=== PATIENT | male | born 1955 | race Caucasian/White ===

== ENCOUNTER → 2022-07-13 11:14 | Outpatient (BNVA) | payer MEDICARE, SELFPAY | PROVIDERS: PCP Internal Medicine; Visit Provider Physician Assistant | DX: M41.20 Other idiopathic scoliosis, site unspecified (principal) | CPT/HCPCS: 99212 ==

== ENCOUNTER → 2022-08-24 10:00 | Outpatient (BNVA) | payer MEDICARE, SELFPAY | PROVIDERS: PCP Internal Medicine; Visit Provider Physician Assistant | DX: M41.20 Other idiopathic scoliosis, site unspecified (principal) | CPT/HCPCS: 99212 ==

== ENCOUNTER 2022-11-30 13:54 | Outpatient (AMB) | payer MEDICARE, SELFPAY ==
--- NOTE | 2022-11-30 14:25 | A.SPINEOV_ITS ---
Intake Intake Visit Reasons: 3 month follow up with x-rays Intake Note: Mr. Begum is here today for his 3mo f/u w/x-rays. Discovery Manager Required: No Allergies No Known Allergies Allergy (Verified 08/24/22 10:15) Assessment & Plan Assessment & Plan (1) Scoliosis (and kyphoscoliosis), idiopathic: Code(s): M41.20 - Other idiopathic scoliosis, site unspecified Plan Mr Shy is here today 7 months out from his L1-5 trans Kambin oblique lateral lumbar interbody fusion. He has had almost complete relief of his preoperative back pain, however he still having painful dysesthesias in his anterior thigh is as well as feelings of weakness proximally when he is going up and down stairs or walking. He is unsteady on his feet and will use a cane and does have some fatigue in his legs. On exam he is still demonstrating some mild iliopsoas weakness but distally from the quadriceps down he is 5/5. No hyperreflexia noted in the lower extremities. He seems to be ever so slowly making improvements but does not seem to have full function back yet. I am going to recommend lumbar MRI for him to check the status of the spinal canal. He has done 6 months of PT and has tried all the usual Tylenol, Lyrica and oxycodone to deal with the dysesthesias and discomfort. I will call him with the results of the MRI. His x-rays today looked excellent. Total amount of time spent in this visit was 20 minutes in discussion of symptoms, lumbar x-ray imaging results and subsequent plan of care Kiko Orta MD,PhD [facility] Orders: Orders XR lumbar spine 4V min Today M41.20 - Other idiopathic scoliosis, site unspecified Coding Level of Care Code New Pt Level 4 (68652) Diagnoses Scoliosis (and kyphoscoliosis), idiopathic M41.20
== END 2022-11-30 15:11 | disposition home or self-care (01) ==
PROVIDERS: PCP Internal Medicine; Visit Provider Physician Assistant
DX: M41.20 Other idiopathic scoliosis, site unspecified (principal)
CPT/HCPCS: 99214

== ENCOUNTER 2022-11-30 13:54 | Outpatient (REF) | payer MEDICARE, SELFPAY ==
--- NOTE | ~2022-11-30 | XR_ITS ---
EXAMINATION: XR LUMBOSACRAL SPINE CLINICAL INFORMATION: Reason for Exam M41.20 - Other idiopathic scoliosis, site unspecified COMPARISON: None TECHNIQUE: 4 views of the lumbar spine FINDINGS: 5 nonrib-bearing lumbar-type vertebral bodies. Status post L1-L5 discectomy and posterior spinal fusion with interbody disc spacers. No hardware fracture or complication. No osseous fusion across the fused vertebral bodies. Schmorl's node in the superior endplate of L1. Vertebral body heights are otherwise maintained. Dextroconvex curvature of the lumbar spine. No instability on flexion extension views. Mild degenerative disc disease at T12-L1 and L1-L2. Atherosclerotic calcifications of the abdominal aorta and splenic artery. XR/XR lumbar spine 4V min IMPRESSION: 1. Status post L1-L5 discectomy and posterior spinal fusion with interbody disc spacers. No hardware fracture or complication. No instability on flexion extension views. 2. Dextroconvex curvature of the lumbar spine. 3. Mild degenerative disc disease at T12-L1 and L1-L2.
== END 2022-11-30 13:55 | disposition home or self-care (01) ==
LOC: HO.HOSX 13:54
PROVIDERS: PCP Internal Medicine; Visit Provider Physician Assistant
DX: M41.20 Other idiopathic scoliosis, site unspecified (principal)
CPT/HCPCS: 72110; 99212

== ENCOUNTER 2022-12-29 11:00 | Outpatient (REF) | payer MEDICARE, SELFPAY | END 2022-12-29 11:01 | disposition home or self-care (01) | LOC: HO.MRI 11:00 | PROVIDERS: PCP Internal Medicine; Visit Provider Physician Assistant | DX: M41.20 Other idiopathic scoliosis, site unspecified (principal) | CPT/HCPCS: 72148 ==

== ENCOUNTER 2024-01-03 09:41 | Outpatient (AMB) | payer MEDICARE, SELFPAY ==
--- NOTE | 2024-01-03 09:42 | A.SPINEOV_ITS ---
Intake Visit Reasons: eval possible hardware removal Intake Note: Mr. Begum is here today c/o Evaluate for possible hardware removal. Sheet Metal Fabricator Required: No Allergies No Known Allergies Allergy (Verified 01/03/24 10:17) Assessment & Plan Assessment & Plan (1) Painful orthopaedic hardware: Code(s): T84.84XA - Pain due to internal orthopedic prosthetic devices, implants and grafts, initial encounter Category: Medical Plan Dear colleague, On 01/03/2024 I saw Vince begum. He is a 68-year-old male that underwent a lumbar minimally invasive fusion L2-L5 to correct a degenerative scoliosis more than 18 months ago. The preoperative symptoms completely disappeared. However, from day 1 he was complaining of a bilateral pain below the paramedian incision of the L5 screws. Initially, we thought that this would subside over time but unfortunately it has not. He had a local block done at [facility] which completely relieved the symptoms. Therefore it is reasonable to assume that the hardware is giving him pain. On exam: There is severe pain on palpation over that area ready bilateral L5 screws are and no pain over the other paramedian incisions. SI joint provocative tests are negative. Straight leg raise is negative. No motor or sensory deficits. In summary, this patient is most likely suffering from painful hardware and therefore I propose to remove the posterior instrumentation L1-L5. He will stop anti-inflammatory drugs and he is scheduled for 02/06/2024. He will get preoperative clearance from his primary care physician. I spent 20 minutes in his consult for history physical exam and discussing plan of care. Maged Orta MD, PhD [facility] Trained Neurosurgeon Director, [facility] Coding Level of Care Code Est Pt Level 3 (25934) Diagnoses Painful orthopaedic hardware T84.84XA
== END 2024-01-03 11:40 | disposition home or self-care (01) ==
PROVIDERS: PCP Internal Medicine; Visit Provider Neurological Surgery
DX: T84.84XA Pain due to internal orthopedic prosthetic devices, implants and grafts, initial encounter (principal)
CPT/HCPCS: 99213

== ENCOUNTER → 2024-01-03 09:41 | Outpatient (BNVA) | payer MEDICARE, SELFPAY | PROVIDERS: PCP Internal Medicine; Visit Provider Neurological Surgery | DX: T84.84XA Pain due to internal orthopedic prosthetic devices, implants and grafts, initial encounter (principal); X58.XXXA Exposure to other specified factors, initial encounter; Y93.9 Activity, unspecified; Y92.9 Unspecified place or not applicable; Y99.9 Unspecified external cause status | CPT/HCPCS: 99212 ==

== ENCOUNTER → 2024-01-17 12:52 | Outpatient (BNV) | payer MEDICARE, SELFPAY | PROVIDERS: PCP Internal Medicine; Visit Provider Internal Medicine | DX: I44.0 Atrioventricular block, first degree (principal); I49.1 Atrial premature depolarization; R94.31 Abnormal electrocardiogram [ECG] [EKG] | CPT/HCPCS: 93010 ==

== ENCOUNTER 2024-02-06 06:54 | Day surgery (SDC) | payer MEDICARE, SELFPAY ==
[2024-01-17 12:16] VITALS: BMI 24.5
[2024-01-17 12:23] VITALS: BP 113/69; PULSE 62; RESP 20; O2SAT 98
--- NOTE | 2024-01-17 12:52 | ECG_ITS ---
Test Reason : PREOP, COPD Blood Pressure : / mmHG Vent. Rate : 065 BPM Atrial Rate : 065 BPM P-R Int : 220 ms QRS Dur : 076 ms QT Int : 394 ms P-R-T Axes : 078 008 031 degrees QTc Int : 409 ms Sinus rhythm with 1st degree A-V block with Premature atrial complexes Low voltage QRS Borderline ECG No previous ECGs available Referred By: Marisa Shafer Electronically Signed By:MALVIN HOWARD
[2024-01-17 14:10] LABS: Hematocrit 38.4 % (42.0-52.0); Hemoglobin 13.5 g/dl (14.0-18.0); Mean Corpuscular HGB Conc 35.2 g/dl (31.0-36.0); Mean Corpuscular Hemoglobin 34.7 pg (27.0-33.0); Mean Corpuscular Volume 98.7 fL (80.0-98.0); Mean Platelet Volume 9.4 fL (9.4-12.4); Platelet Count 315 X10*3/uL (160-400); Red Blood Count 3.89 X10*6/uL (4.60-5.80); Red Cell Distribution Width 11.9 % (11.0-16.0); White Blood Count 6.1 X10*3/uL (4.8-10.8)
[2024-01-17 15:04] LABS: Anion Gap 14 (12-20); Blood Urea Nitrogen 7 mg/dL (9-16); Calcium 9.6 mg/dL (8.4-10.2); Carbon Dioxide 26 mmol/L (22-29); Chloride 100 mmol/L (96-108); Creatinine Clr Calc Pharmacy 97.8; Estimated Glomerular Filt Rate > 60; Glucose Random 77 mg/dL (60-115); Potassium 4.5 mmol/L (3.3-5.1); Sodium 135 mmol/L (135-145)
--- NOTE | 2024-02-05 10:17 | P.CONAN_ITS ---
Documented by User: Lyric Flores NP 02/05/24 10:22 HPI - Anesthesia Eval Consult details Narrative: 68yo M for L1-L5 Posterior Instrumentation Spinal hardware Removal (S/P TKLIF) PAT with Dr Shafer 01/17/24 Medically optimized per PCP Follows [facility] cardiac surgery for incidental finding of 4.2cm ascending aorta aneurysm. Continue to monitor BP / q6 month imaging [facility] Active Problems Active Problems: All Active Problems (Updated 01/17/24 @ 12:09 by Brittney Doran RN) Painful orthopaedic hardware (Acute) Scoliosis (and kyphoscoliosis), idiopathic (Acute) Past Medical History Medical History Peptic ulcer Bronchitis Monoclonal gammopathy of unknown significance BPH (benign prostatic hyperplasia) Ascending aortic aneurysm Spinal stenosis GERD (gastroesophageal reflux disease) HTN (hypertension) COPD (chronic obstructive pulmonary disease) Low back pain Ankylosis of lumbar spine Scoliosis Surgical History Surgical History History of esophagogastroduodenoscopy (EGD) H/O colonoscopy Hx of neck surgery History of lumbar fusion Hx of tonsillectomy Social History Social History Are you a primary post acute care registered nurse to a significant other at home: No Do you presently have visiting nurse or other home services: No Patient Tobacco Use Status: Current everyday Tobacco user Tobacco use type: Cigarette Cigarettes Per Day: 3 Years Smoked: 52 Use of substances other than those prescribed or required for medical reasons: No Have you been hit, kicked, punched, or otherwise hurt by someone within the past year? If so, by whom?: No Spiritual Healthcare Practices: none Jewish Healthcare Practices: Congregational Cultural Healthcare Practices: none Are you DNR?: No Advance Directives Information Provided: Yes (as above noted) Advance Directives on File: No Recently lost weight without trying: No Eating poorly because of decreased appetite: No Nutrition Risks: No Nutritional Risk Poor oral hygiene: No (two missing teeth-lower) Meds Allergies Allergy/AdvReac Type Severity Reaction Status Date / Time Penicillins Allergy Unknown childhood Verified 02/06/24 07:09 allergy-reaction unknown-possible hives Home Medications ?Medication ?Instructions ?Recorded ?Confirmed ?Last Taken ?Type atorvastatin 40 mg tablet 40 mg PO BEDTIME 01/16/24 01/17/24 Unknown History celecoxib 200 mg capsule 200 mg PO QAM 01/16/24 01/17/24 Unknown History duloxetine 60 mg capsule,delayed 60 mg PO QAM 01/16/24 01/17/24 Unknown History release lisinopril 10 mg tablet 10 mg PO BEDTIME 01/16/24 01/17/24 Unknown History pregabalin 150 mg capsule 150 mg PO BID 01/16/24 01/17/24 02/06/24 History propranolol 40 mg tablet 40 mg PO BID 01/16/24 01/17/24 02/06/24 History tadalafil 5 mg tablet 5 mg PO QAM 01/16/24 01/17/24 Unknown History tamsulosin 0.4 mg capsule 0.4 mg PO BEDTIME 01/16/24 01/17/24 Unknown History varenicline 1 mg tablet 1 mg PO BID 01/16/24 01/17/24 02/06/24 History vibegron 75 mg tablet (Gemtesa) 75 mg PO BEDTIME 01/16/24 01/17/24 Unknown History albuterol sulfate 90 mcg/actuation 2 puff inhalation Q4H PRN wheezing 01/17/24 01/17/24 02/06/24 History aerosol inhaler Exam Height,Weight and Vital Signs: Height 5 ft 11 in Weight 79.832 kg Last Vital Signs Pulse 62 01/17/24 12:23 Resp 20 01/17/24 12:23 BP 113/69 01/17/24 12:23 Pulse Ox 98 01/17/24 12:23 O2 Del Method Room Air 01/17/24 12:23 Pertinent Lab Results Pertinent Lab Results: Laboratory Tests 01/17/24 13:22 WBC 6.1 RBC 3.89 L Hgb 13.5 L Hct 38.4 L MCV 98.7 H MCH 34.7 H MCHC 35.2 RDW 11.9 Plt Count 315 MPV 9.4 Absolute Nucleated RBC 0.000 Nucleated RBC % (auto) 0.0 Sodium 135 Potassium 4.5 Chloride 100 Carbon Dioxide 26 Anion Gap 14 BUN 7 L Creatinine 0.78 Estim Creat Clear Calc 97.8 Estimated GFR > 60 Random Glucose 77 Calcium 9.6 Narrative Narrative: EKG 12/2023 Vent. Rate : 065 BPM Atrial Rate : 065 BPM P-R Int : 220 ms QRS Dur : 076 ms QT Int : 394 ms P-R-T Axes : 078 008 031 degrees QTc Int : 409 ms Sinus rhythm with 1st degree A-V block with Premature atrial complexes Low voltage QRS Borderline ECG No previous ECGs available Assessment and Plan Assessment Anesthesia Assessment: Chart Reviewed Documented by User: Belinda Lopez MD 02/06/24 09:45 [facility] Active Problems Active Problems: All Active Problems (Updated 01/17/24 @ 12:09 by Brittney Doran RN) Painful orthopaedic hardware (Acute) Scoliosis (and kyphoscoliosis), idiopathic (Acute) Quit smoking 2 weeks ago Quit ETOH Past Medical History Medical History Peptic ulcer Bronchitis Monoclonal gammopathy of unknown significance BPH (benign prostatic hyperplasia) Ascending aortic aneurysm Spinal stenosis GERD (gastroesophageal reflux disease) HTN (hypertension) COPD (chronic obstructive pulmonary disease) Low back pain Ankylosis of lumbar spine Scoliosis Family History Family history of problems with anesthesia: No Surgical History Surgical History History of esophagogastroduodenoscopy (EGD) H/O colonoscopy Hx of neck surgery History of lumbar fusion Hx of tonsillectomy History of Problems with Anesthesia: No Social History Social History Are you a primary post acute care registered nurse to a significant other at home: No Do you presently have visiting nurse or other home services: No Patient Tobacco Use Status: Current everyday Tobacco user Tobacco use type: Cigarette Cigarettes Per Day: 3 Years Smoked: 52 Use of substances other than those prescribed or required for medical reasons: No Have you been hit, kicked, punched, or otherwise hurt by someone within the past year? If so, by whom?: No Spiritual Healthcare Practices: none Jewish Healthcare Practices: Congregational Cultural Healthcare Practices: none Are you DNR?: No Advance Directives Information Provided: Yes (as above noted) Advance Directives on File: No Recently lost weight without trying: No Eating poorly because of decreased appetite: No Nutrition Risks: No Nutritional Risk Poor oral hygiene: No (two missing teeth-lower) Meds Allergies Allergy/AdvReac Type Severity Reaction Status Date / Time Penicillins Allergy Unknown childhood Verified 02/06/24 07:09 allergy-reaction unknown-possible hives Home Medications ?Medication ?Instructions ?Recorded ?Confirmed ?Last Taken ?Type atorvastatin 40 mg tablet 40 mg PO BEDTIME 01/16/24 01/17/24 Unknown History celecoxib 200 mg capsule 200 mg PO QAM 01/16/24 01/17/24 Unknown History duloxetine 60 mg capsule,delayed 60 mg PO QAM 01/16/24 01/17/24 Unknown History release lisinopril 10 mg tablet 10 mg PO BEDTIME 01/16/24 01/17/24 Unknown History pregabalin 150 mg capsule 150 mg PO BID 01/16/24 01/17/24 02/06/24 History propranolol 40 mg tablet 40 mg PO BID 01/16/24 01/17/24 02/06/24 History tadalafil 5 mg tablet 5 mg PO QAM 01/16/24 01/17/24 Unknown History tamsulosin 0.4 mg capsule 0.4 mg PO BEDTIME 01/16/24 01/17/24 Unknown History varenicline 1 mg tablet 1 mg PO BID 01/16/24 01/17/24 02/06/24 History vibegron 75 mg tablet (Gemtesa) 75 mg PO BEDTIME 01/16/24 01/17/24 Unknown History albuterol sulfate 90 mcg/actuation 2 puff inhalation Q4H PRN wheezing 01/17/24 01/17/24 02/06/24 History aerosol inhaler Exam Height,Weight and Vital Signs: Height 5 ft 11 in Weight 79.832 kg Last Vital Signs Pulse 62 01/17/24 12:23 Resp 20 01/17/24 12:23 BP 113/69 01/17/24 12:23 Pulse Ox 98 01/17/24 12:23 O2 Del Method Room Air 01/17/24 12:23 Vital Signs Temp Pulse Resp BP Pulse Ox O2 Del Method 02/06/24 07:30 98.1 F 61 14 142/79 H 100 Room Air Airway Mallampati Class: II TM Dist: >3cm Neck ROM: Limited Loose/Missing/Broken Teeth: Yes (Missing some teeth. Some broken teeth. Denies loose teeth) Heart: RRR Lungs: CTAB Assessment and Plan Assessment Anesthesia Assessment: Anesthesia Plan Discussed, PAT Visit and Chart Reviewed Final Anesthetic Review Family History of Problems with Anesthesia: No History of Problems with Anesthesia: No NPO: Yes ASA Class: III Final Preanesthetic Review: No Changes in Pt Med Stat, Meds/Allgs Chart Reviewed, Consent Obtained/Reviewed and Anes Risks/Benef Reviewed Patient Risk: Intermediate Procedure Risk: Intermediate Assessment/Block/Sedation in SS: Assess/Block/Sedation-SS Anesthetic Plan Anesthetic Plan: GA Disposition: Standard PACU
--- NOTE | 2024-02-06 07:08 | P.HPSUR_ITS ---
Pre-Procedural Eval Section A - 24 Hr Update-Section A only Date of Service: 02/06/24 The patient is an INPATIENT: No Changes since office visit: No Cold of Flu in the past 2 weeks, No New Medical Problems, No Changes in Medication and No Patient answered all questions The patient has been examined within 24 hours of the surgical procedure. The History & Physical has been completed within 30 days and I have reviewed it.: No Section B - Complete if H&P > 30 days Chief Complaint: Pain due to internal orthopedic prosthetic devices Allergies: Allergies Allergy/AdvReac Type Severity Reaction Status Date / Time Penicillins Allergy Unknown childhood Verified 01/17/24 12:12 allergy-reaction unknown-possible hives Review of Systems Sugical H&P ROS: Negative: Constitution, Cardiovascular, Respiratory, Neurological, Psychiatric, Hem-Onc, Allergic/Immunologic, Gastrointestinal, Genitourinary, Musculoskeletal, Integumentary, Endocrine and Eyes/Ears/Nose/Throat Exam Surgical H&P Exam: Normal: HEENT, Normal: Heart, Normal: Lungs, Normal: Ext remities, Normal: Abdomen, Normal: Skin and Normal: Neurological (awake, alert,oriented x 3 ) Plan Diagnosis/Plan: Unchanged spinal hardware removal L1-5 Time Spent With Patient Time: Total time managing care of this patient today _5__ minutes.
[2024-02-06 07:15] VITALS: BMI 27.5
[2024-02-06 07:30] VITALS: BP 142/79; PULSE 61; RESP 14; TEMP 36.7; O2SAT 100
--- NOTE | 2024-02-06 07:30 | PM.DS ---
DS: Providers Provider Date of Service: 02/06/24 Date of discharge: 02/06/24 Primary care physician: Krishna Velázquez MD Admitting clinician: Maged Orta DS: Diagnosis Discharge Diagnosis (1) Painful orthopaedic hardware: Status: Acute DS: Summary Time Attestation Discharge Coordination Time (in mins): 5 Quality: Safe Use of Opioids Does Pt have an Active Cancer Diagnosis on the Problem List?: No Quality: Stroke Does the patient have a stroke diagnosis?: No Physical Exam Vital Signs: Vital Signs: Last Vital Signs Pulse 62 01/17/24 12:23 Resp 20 01/17/24 12:23 BP 113/69 01/17/24 12:23 Pulse Ox 98 01/17/24 12:23 O2 Del Method Room Air 01/17/24 12:23 BMI result Body Mass Index 27.5 Discharge Plan Discharge Patient Disposition: Home, Self-Care Referrals: Krishna Velázqeuz MD [Primary Care Provider] - 1 Week Discharge Medications: New oxycodone 5 mg tablet 5 mg PO Q4H PRN (Reason: pain) Qty: 30 0RF Rx Instructions: Partial Fill upon patient request. Continued oxycodone 5 mg tablet 5 mg PO Q6H PRN (Reason: pain) Qty: 30 0RF Rx Instructions: Partial Fill upon patient request. s/p lumbar fusion with post op pain atorvastatin 40 mg tablet 40 mg PO BEDTIME propranolol 40 mg tablet 40 mg PO BID tamsulosin 0.4 mg capsule 0.4 mg PO BEDTIME tadalafil 5 mg tablet 5 mg PO QAM celecoxib 200 mg capsule 200 mg PO QAM lisinopril 10 mg tablet 10 mg PO BEDTIME duloxetine 60 mg capsule,delayed release(DR/EC) 60 mg PO QAM pregabalin 150 mg capsule 150 mg PO BID varenicline 1 mg tablet 1 mg PO BID Gemtesa 75 mg tablet 75 mg PO BEDTIME albuterol sulfate 90 mcg/actuation HFA aerosol inhaler 2 puff INHALATION Q4H PRN (Reason: wheezing) Discharge Orders: Discharge Order (Routine); Ordered 02/06/24 Ordered By: Kiko Paez Diet: Advance to usual diet Activity on Discharge: As tolerated Activity Restrictions/Additional Instructions: After your spinal surgery we ask you to observe the following restrictions/guidelines: Activity: It is normal to feel some discomfort as you increase your activity, but that will improve with time. We ask you avoid heavy lifting or acitivities that cause pain. As a general rule, 8lbs is a safe limit for lifting right after surgery. Walk as much as you feel comfortable but not to exhaustion. You will feel extra tired the first few days after surgery. Stay well hydrated. It is OK to walk up and down stairs You may return to driving when you are off narcotics (such as vicodin, oxycodone, dilaudid, etc), and you are back to normal functional capacity. If you have any concerns please check with office before driving. Return to work is specific to each patient and each surgery, so please speak with your doctor/PA at first follow up. Please bring paperwork such as FMLA at that time if you need it filled out. Medications: For optimum pain control, it is best to start with a combination of 500 mg of Tylenol every 4 hours with 600 mg of Motrin every 8 hours, and use narcotics as needed in between for breakthrough pain. We will give you a short supply of narcotics after surgery (usually one weeks worth). If you need more please call the office but do not use more than prescribed. You will need to give our office 48 hours notice if you need narcotics refilled and we do not fill narcotics on weekends or evenings. If you are on a narcotic, it is a good idea to take a stool softener such as colace or senna to avoid constipation If you take blood thinner such as aspirin, Plavix, Coumadin, Effient, Eliquis etc for conditions such as Afib, DVT, Pulmonary embolus, coronary disease, stents etc please speak with your surgeon about specific details as to when you can resume these medications. You can resume NSAIDs on post op day 1 (eg: Motrin, Naproxen, etc). Follow up: Please call the office, , after surgery to arrange a 3 week follow up for wound check. Wound Care: You may remove your dressing on the first day after surgery. ?You may ?leave open to air. Please do not remove the steri strips underneath. they will fall off on their own in one week. IT IS NORMAL FOR THE WOUND TO OOZE OR BE BLOODY FOR A FEW DAYS AFTER SURGERY. ?IF THIS HAPPENS JUST PLACE NEW DRESSING OVER IT TO AVOID STAINING CLOTHES. You may shower on post op day # 1 We ask that you do not let the water soak the wound. If it does get wet, just towel dry lightly. Please do not scrub your incision or place any type of chemical/ointment on the wound. No tub baths, pools or jacuzzis for one month. If you have any leaking or redness from your wound, or fevers, please call office Print Language: Guatemalan
[2024-02-06] MEDS: methocarbamoL 750 MG TABLET PO (07:52)
[2024-02-06] MEDS: Gabapentin 300 MG CAPSULE PO (07:52)
[2024-02-06] MEDS: Lactated Ringers 1,000 ML 100 ML IVCONT (07:54)
[2024-02-06] MEDS: vancomycin HCL 1,500 MG in 0.9 % Sodium Chloride 500 ML 333.33 MG IV (08:05)
[2024-02-06 10:07] VITALS: BP 140/80; PULSE 67; RESP 16; TEMP 36.2; O2SAT 97
[2024-02-06 10:10] VITALS: BP 127/58; PULSE 66; RESP 16; O2SAT 97
[2024-02-06 10:15] VITALS: BP 118/59; PULSE 70; RESP 16; O2SAT 97
[2024-02-06 10:20] VITALS: BP 113/69; PULSE 65; RESP 16; O2SAT 97
--- NOTE | 2024-02-06 10:31 | W.PM.OPN ---
Operative Note Operative Note Date of Service: 02/06/24 Narrative: Preoperative Diagnosis: Painful posterior lumbar hardware Operation: Remove a L1-L5 posterior segmental instrumentation Consent Informed Consent was obtained for this operation. I have explained the nature, purpose and benefits of the operation. I have discussed the risks and benefit of the operation including possible complications or adverse events with patient/family. Alternative(s) were discussed with the patient with their relative benefits and risks as well as the consequences of not accepting the operation were included in obtaining consent. Surgeon: ALEJANDRO RODRIGUEZ MD, PHD Procedure Assisted By: Kiko Cochran Description of Procedure This patient is status post minimally invasive lumbar fusion L1-L5. His original symptoms are gone but he continues to complain of a right-sided pain over the screw area. Palpation is painful. Therefore it was decided to remove the posterior segmental instrumentation in an attempt to address that pain. he procedure complications were explained. The patient was consented. The patient was brought to the operating room and endotracheally intubated. The patient was turned in prone position on the Alli table. Prep and drape was done followed by timeout. The previous paramedian incisions were opened bilaterally by the physician visitor use assistant and myself. The underlying instrumentation was exposed. The locking caps were removed followed by removal of the bilateral rods. Finally 8 screws from L1-L5 were removed. Extensive hemostasis was done and the paramedian incisions were closed with an 0 Vicryl of the fascia and 3-0 Vicryl for the subdermal layer. Steri-Strips were used to approximate incision. An OpSite with Tegaderm was used to cover the incision. All sponge needle counts were correct. Patient was extubated and transported in stable is to recovery room. Anesthesia: General Estimated Blood Loss (ml): 50 mL Complications: None Duration of Surgery: Under 60 Minutes Postoperative Plan: Discharge to home
[2024-02-06 10:35] VITALS: BP 135/80; PULSE 65; RESP 16; TEMP 36.1; O2SAT 97
== END 2024-02-06 11:14 | disposition home or self-care (01) ==
PROVIDERS: Anesthesiology; PCP Internal Medicine; Visit Provider Neurological Surgery
PROC: (CPT 22852; principal; 2024-02-06 09:00)
DX: T84.84XA Pain due to internal orthopedic prosthetic devices, implants and grafts, initial encounter (principal); M54.50 Low back pain, unspecified; Y79.2 Prosthetic and other implants, materials and accessory orthopedic devices associated with adverse incidents
CPT/HCPCS: 22852; 36415; 80048; 85027; 93005; J0131; J1100; J1885; J2003; J2371; J2405; J2704; J3010; J3371

== ENCOUNTER → 2024-02-06 06:54 | Outpatient (BNV) | payer MEDICARE, SELFPAY | PROVIDERS: PCP Internal Medicine; Visit Provider Physician Assistant | DX: T84.84XA Pain due to internal orthopedic prosthetic devices, implants and grafts, initial encounter (principal) | CPT/HCPCS: 22852; 99499 ==

== ENCOUNTER 2024-02-27 09:56 | Outpatient (AMB) | payer MEDICARE, SELFPAY ==
--- NOTE | 2024-02-27 10:11 | A.SPINEOV_ITS ---
Intake Visit Reasons: 1st post op Intake Note: Mr. Begum is here today for his 1st post op visit. Outside Sales Associate Required: No Allergies Penicillins Allergy (Unknown, Verified 02/27/24 10:12) childhood allergy-reaction unknown-possible hives Assessment & Plan Assessment & Plan (1) Painful orthopaedic hardware: Code(s): T84.84XA - Pain due to internal orthopedic prosthetic devices, implants and grafts, initial encounter Category: Medical Plan Operation: Remove a L1-L5 posterior segmental instrumentation Vince is a pleasant 68-year-old male who comes in today for his 1st postoperative visit after having L1-5 posterior instrumentation removed due to irritation of the orthopedic hardware. He reports that he has had quite a bit of soreness in his low back since the surgery. He has been taking mlnr-eae-zxbslva medications such as Tylenol/ibuprofen has only taken the occ asional oxycodone. He did request a prescription for muscle relaxers so he does not need to her lying the oxycodone. He also asked if he is able to complete physical therapy at this time which we discussed. We discussed his postoperative healing course and I answered all of his questions to the best of my ability. No new neurological deficits. The patient ambulates well and rises from a seate d position without difficulty. His posterior incision sites appear closed and well healing. I wrote a prescription for methocarbamol for Vince's so he does not need to rely on his oxycodone and can still take something for muscle spasm/pain relief. I also completed an order for physical therapy. He wishes to have this done in [place]. I would like to follow up again with him in 6 weeks to make sure that his low back pain is resolving. Berny Orta MD,PhD [facility] Orders: Orders PT Evaluation and Treatment Today T84.84XA - Pain due to internal orthopedic prosthetic devices, implants and grafts, initial encounter Medications: New methocarbamol 750 mg PO TID PRN 30 tabs 0RF muscle spasms Coding Level of Care Code Global (78745) Diagnoses Painful orthopaedic hardware T84.84XA
== END 2024-02-27 10:28 | disposition home or self-care (01) ==
PROVIDERS: PCP Internal Medicine; Visit Provider Physician Assistant
DX: T84.84XA Pain due to internal orthopedic prosthetic devices, implants and grafts, initial encounter (principal)
CPT/HCPCS: 99024

== ENCOUNTER → 2024-02-27 09:56 | Outpatient (BNVA) | payer MEDICARE, SELFPAY | PROVIDERS: PCP Internal Medicine; Visit Provider Physician Assistant | DX: T84.84XA Pain due to internal orthopedic prosthetic devices, implants and grafts, initial encounter (principal) | CPT/HCPCS: 99212 ==

== ENCOUNTER 2024-04-09 09:59 | Outpatient (AMB) | payer MEDICARE, SELFPAY ==
--- NOTE | 2024-04-09 10:01 | HO.SPINEOV ---
Intake Visit Reasons: 2nd post op Intake Note: Mr. Begum is here today for his 2nd post op Front Desk Person Required: No Allergies Penicillins Allergy (Unknown, Verified 04/09/24 10:01) childhood allergy-reaction unknown-possible hives Assessment & Plan Assessment & Plan (1) Painful orthopaedic hardware: Code(s): T84.84XA - Pain due to internal orthopedic prosthetic devices, implants and grafts, initial encounter Category: Medical Plan Operation: Remove a L1-L5 posterior segmental instrumentation Vince is a pleasant 68-year-old male who comes in today for his 2nd postoperative visit after having L1-5 posterior instrumentation removed due to irritation of the orthopedic hardware. Overall he is doing much better than he did prior to surgery. He has been working with physical therapy, stretching, and ambulate with daily. He asked several questions regarding his surgical construct in the postoperative healing course. We discussed the fusion status of his lumbar spine, as he was asking about further degeneration and endplate damage. I answered all of his questions to the best of my ability. We used the 3D spine models to further discuss the surgery he had. No new neurological deficits. The patient ambulates well and rises from a seated position without difficulty. His posterior incision sites appear closed and well healed. There is no need for continued routine follow up with Vince, he may be discharged as a patient. He should continue to set a goal to walk about 1 mi per day, continue work him to physical therapy, and continue stretching/exercise daily. Berny Orta MD,PhD [facility] Coding Level of Care Code Global (45173) Diagnoses Painful orthopaedic hardware T84.84XA
--- OUTSIDE RECORDS SUMMARY | 2024-04-09 11:40 | XMS_ITS | Continuity of Care Document ---
Author Organization [facility] Chelo deena Address [address] [place] [address] [place] [address]- Care Team Providers Care Hvac Manager Name Role Phone Krishna Velázquez MD Primary Care Physician [phone] Encounter [facility] Date(s): 03/06/24 - 04/05/24 [facility] [address] [place] [address] Drive [address] [place] [address]- Attending Physician: Carrillo Forte Admitting Physician: AdmCarrillo ribeiro Referring Physician: Admtr, [id number] Encounter Type: Triage Allergies, Adverse Reactions, Alerts Substance Criticality Severity Reaction Reaction Severity Status penicillin Active Immunizations Given and Recorded Vaccine Date Status Refusal Reason SARS-CoV-2 (COVID-19) mRNA BNT-162b2 vac 06/22/20 Given SARS-CoV-2 (COVID-19) mRNA BNT-162b2 vac 06/01/20 Given Medications atorvastatin 40 mg oral tablet TAKE 1 TABLET BY MOUTH DAILY Start Date: 03/06/24 Status: Ordered Repeat number: 1 CeleBREX 200 mg oral capsule 1 capsule = 200 mg, By Mouth, Daily, # 30 capsule, 0 Refills, Maintenance, 09/16/23 1:15:00 PM EDT, Capsule, Partial fill upon patient request if the prescription is for a schedule II opioid drug. Start Date: 09/16/23 Status: Ordered Quantity: 30.0 Unit: capsule Repeat number: 1 chantix 1mg tablet 1 tablet = 1 mg, By Mouth, 2 times a day, 0 Refills, Maintenance, 09/16/23 1:16:00 PM EDT, Partial fill upon patient request if the prescription is for a schedule II opioid drug. Start Date: 09/16/23 Status: Ordered Repeat number: 1 duloxetine 60 mg oral enteric coated capsule 1 capsule = 60 mg, By Mouth, Daily, # 30 capsule, 0 Refills, Maintenance, 09/16/23 1:17:00 PM EDT, EC Capsule, Partial fill upon patient request if the prescription is for a schedule II opioid drug. Start Date: 09/16/23 Status: Ordered Quantity: 30.0 Unit: capsule Repeat number: 1 Flomax 0.4 mg oral capsule 0.4 mg, 1, capsule, By Mouth, Daily, Refills 0, Maintenance, 07/23/22 9:53:00 AM EDT, Partial fill upon patient request if the prescription is for a schedule II opioid drug. Start Date: 07/23/22 Status: Ordered Repeat number: 1 Gemtesa 75 mg oral tablet TAKE ONE TABLET BY MOUTH EVERY DAY Start Date: 03/06/24 Status: Ordered Repeat number: 1 lisinopril 10 mg oral tablet 10 mg, 1, tablet, By Mouth, Daily, # 30 tablet, Refills 0, Maintenance, 09/16/23 1:17:00 PM EDT, Partial fill upon patient request if the prescription is for a schedule II opioid drug. Start Date: 09/16/23 Status: Ordered Quantity: 30.0 Unit: tablet Repeat number: 1 LORazepam 0.5 mg oral tablet 1 tablet = 0.5 mg, By Mouth, 2 times a day, PRN as needed for anxiety, 0 Refills, Maintenance, 03/06/24 11:44:00 AM EST, Tablet, Partial fill upon patient request if the prescription is for a schedule II opioid drug. Start Date: 03/06/24 Status: Ordered Repeat number: 1 methocarbamol 750 mg oral tablet TAKE 1 TABLET BY MOUTH THREE TIMES DAILY NEEDED FOR MUSCLE SPASMS Start Date: 03/06/24 Status: Ordered Repeat number: 1 oxyCODONE 5 mg oral capsule 1 capsule = 5 mg, By Mouth, Every 6 hours, PRN as needed for pain, 0 Refills, Maintenance, 09/16/23 1:17:00 PM EDT, Capsule, Partial fill upon patient request if the prescription is for a schedule II opioid drug. Start Date: 09/16/23 Status: Ordered Repeat number: 1 pregabalin 150 mg oral capsule 1 capsule = 150 mg, By Mouth, 2 times a day, # 180 capsule, 0 Refills, Maintenance, 09/16/23 1:17:00PM EDT, Capsule, Partial fill upon patient request if the prescription is for a schedule II opioid drug. Start Date: 09/16/23 Status: Ordered Quantity: 180.0 Unit: capsule Repeat number: 1 propranolol 40 mg oral tablet TAKE 1 TABLET BY MOUTH TWICE DAILY Start Date: 03/06/24 Status: Ordered Repeat number: 1 tadalafil 5 mg oral tablet 1 tablet = 5 mg, By Mouth, Daily, 1 hour before sexual activity, # 5 tablet, 0 Refills, Maintenance, 09/16/23 1:18:00 PM EDT, Tablet, Partial fill upon patient request if the prescription is for a schedule II opioid drug. Start Date: 09/16/23 Status: Ordered Quantity: 5.0 Unit: tablet Repeat number: 1 Problem List Condition Confirmation Course Effective Dates Status Health St atus Informant Ascending aortic aneurysm Confirmed Active BPH (benign prostatic hyperplasia) Confirmed Active Chronic obstructive lung disease Confirmed Active GERD (gastroesophageal reflux disease) Confirmed Active HTN (hypertension) Confirmed Active Monoclonal gammopathy of unknown significance Confirmed Active Overactive bladder Confirmed Active Colon polyp Confirmed Active Spinal stenosis, lumbar Confirmed Active Social History Social History Type Response Smoking Status 5-9 cigarettes (betw een 1/4 to 1/2 pack)/day in last 30 days; Interested in cessation: Yes entered on: 09/16/23 Sex Sex Representation Male (finding) Patient Care team information Care Team Personnel Name: Krishna Velázquez MD Position: S Physician - Primary Care Member Role: PCP [address]: [address] [place] [address], [address] Telecom: Care Team Related Persons Name: RYLEE MABRY Insurance Providers Guarantor name: DEE DEE RAGHAVENDRA Health Plan Information #: 1 Payer: MEDICARE PART B OUTPT Member Number: NA Policy Number: NA Group Number: NA Health Plan Information #: 2 Payer: MEDEX Member Number: NA Policy Number: NA Group Number: NA
--- OUTSIDE RECORDS SUMMARY | 2024-04-09 11:40 | XMS_ITS | Continuity of Care Document ---
Author Organization [facility] Chelo deena Address [address] [place] [address] [place] [address]- Care Team Providers Care Delivery Aide Name Role Phone Eber FRANCES, Krishna Hi Primary Care Physician [place] [facility] [place](s[place] 03/06/24 - 03/13/24 [facility] Surgery [address] [place] [address] Drive [address] [place] [address]- Attending Physician: Teri Guzmán MD Encounter Type: Office Visit Allergies, Adverse Reactions, Alerts Substance Criticality Severity [...] Confirmed Active Spinal stenosis, lumbar Confirmed Active Vital Signs Most recent to oldest [Reference Range]: 1 Height 180 cm (03/06/24 11:41 AM) Weight 82.7 kg (03/06/24 11:41 AM) Oxygen Saturation [94-100 %] 96 % (03/06/24 11:41 AM) Pulse Rate [55-90 bpm] 64 bpm (03/06/24 11:41 AM) Body Mass Index [18.5-24.99 kg/m2] 25.52 kg/m2 *H* (03/06/24 11:41 AM) Blood Pressure [90-138/55-84 mm Hg] 128/ 80mm Hg (03/06/24 11:41 AM) Respiratory Rate [16-30 br/min] 14 br/mi n *L* (03/06/24 11:41 AM) Temperature [96.8-100.4 DegF] 97 DegF (03/06/24 11:41 AM) Mode of Delivery (Oxygen) Room air (03/06/24 11:41 AM) Blood pressure sites Arm, left (03/06/24 11:41 AM) Temperature Route Oral (03/06/24 11:41 AM) Weight Obtained Via Standing scale (03/06/24 11:41 AM) Social History Social History Type Response Smoking Status 5-9 cigarettes (betw een 03/28 to 03/26 pack)/day in last 30 days; Interested in cessation: Yes entered on: 09/16/23 Sex Sex Representation Male (finding) Cardiac surgery Outpatient Note * Arielle FRANCES, Teri Bland: PERFORM Event Display: Cardiac Surgery Note Office Authored Date: [id number] Patient: ??DEE DEE MABRY ? Age:??68 Years?Sex:??Male?:??1955?? 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 He stopped smoking 7 weeks ago.? No known family history of thoracic aneurysm or connective tissue disorder.? He is with his today. ?? Imaging reviewed and interpreted by me: 02/2024: Aorta: Fusiform aneurysm ascending thoracic aorta, 4.3 x 4.3 cm 12/2023, ECHO: LV Diastolic Dimension: 4.6 cm LV Systolic Dimension: 4.1 cm, The left ventricular ejection fraction is 55-60 %., The aortic valve is likely trileaflet . There is no aortic stenosis orinsufficiency. ?? Review of Systems Cardiac: Symptoms of congestion: No Symptomatic hypotension: No Symptoms of ischemia: no Constitutional:?? Recent infection: No; no fever, no chills Unintentional weight loss/cachexia: No Respiratory: Symptomatic primary lung disease: No; No cough, No shortness of breath? All other systems are negative unless noted above. Physical Exam Vitals & Measurements T:??97?F?? HR:??64??(Peripheral)?? RR:??14?? BP:??128/80?? SpO2:??96%?? HT:??180??cm?? WT:??82.7??kg?? BMI:??25.52?? Weight lb/oz: 182 lb 5 oz ?? Cardiac: No jugular venous distension No peripheral edema?? Regular heart rhythm He??has equal carotid pulses with no carotid bruits.??he has no varicose veins or leg edema. General Appearance:??Normal body habitus Eyes:??Non-icteric Pulmonary:??Normal respiratory effort. Clear to auscultation. No wheezing, rales or rhonchi Gastrointestinal:??Soft, non-tender, no obvious ascites Musculoskeletal:??No overt mechanical limitations on movement and mobility Skin:??Intact, no rashes Neurological:??Alert and oriented, no gross deficits Psychiatric:??Appropriate mood and affect Assessment/Plan ASCENDING THORACIC AORTIC ANEURYSM, 4.3 cm HTN former smoker ?? Greater than 50% spent counseling/coordinating care of the patient regarding??Mr. Mabry's??aneurysm of the ascending aorta. ??I reviewed??his recent imaging studies at length. ??We spoke about the implications and natural history of enlargement of the ascending aorta. ??We discussed our threshold ofconcern based on aortic valve morphology, of 5.5 cm for a normal valve and for a bicuspid valve, 5.0 cm in a low risk patient (based on updated 2021 ACC/AHA guidelines) at which point the annual riskof an acute event such as aortic dissection begins to climb above the risk of surgical intervention. ? The diameter of??his aorta measures at 4.3 cm, and this remains below this threshold. ??In fact,??he has had??2 studies??that have demonstrated very little in the way of change.? We discussed preventative strategies including careful blood pressure and lipid management. ??We discussed the potential advantages of home blood pressure monitoring and maintaining a log for??his family physician, as well as, alerting them to changing trends. ??Fortunately??he stopped smoking. ??We additionally discussed a concerted effort to minimizing lifting greater than 30-50 pounds for sustained periods. ??Finally, we discussed the advantages of ongoing surveillance by CT imaging. ??Given??his??history of previous studies, we will plan on annual non-contrast CT scans of the chest.?Hehad a baseline transthoracic echocardiogram.? He seemed comfortable with our discussion of all of these issues and I believe had??their questionsanswered. ?? PLAN: CT chest noncontrast in one year ?Teri Guzmán MD ?[facility] Cardiac Surgery?[address], [address] ?[place] [address] ?Pager: [phone] ?Office: [phone] ? Allergies penicillin Home Medications atorvastatin 40 mg oral tablet CeleBREX 200 mg oral capsule, 200 mg= 1 capsule, By Mouth, Daily chantix 1mg tablet, 1 mg= 1 tablet, By Mouth, 2 times a day duloxetine 60 mg oral enteric coated capsule, 60 mg= 1 capsule, By Mouth, Daily Flomax 0.4 mg oral capsule, 0.4 mg= 1 capsule, By Mouth, Daily Gemtesa 75 mg oral tablet lisinopril 10 mg oral tablet, 10 mg= 1 tablet, By Mouth, Daily LORazepam 0.5 mg oral tablet, 0.5 mg= 1 tablet, By Mouth, 2 times a day, PRN methocarbamol 750 mg oral tablet oxyCODONE 5 mg oral capsule, 5 mg= 1 capsule, By Mouth, Every 6 hours, PRN pregabalin 150 mg oral capsule, 150 mg= 1 capsule, By Mouth, 2 times a day propranolol 40 mg oral tablet tadalafil 5 mg oral tablet, 5 mg= 1 tablet, By Mouth, Daily Diagnostic Impression Echo Echocardiogram - Complete ?? 10:06:32 Summary There is mild dilation of the aortic root and ascending aorta with a maximum diameter of 42 mm in the tubular section which may be normal for patient???s height. The right ventricle is normal in size and function. The left ventricular size is normal. Left ventricular wall thickness is normal. The LV systolic function is normal . The left ventricular ejection fraction is 55-60 %. There are no regional wall motion abnormalities. Normal diastolic function. ?? Comparison No prior study available for comparison. ?? Signature ?? Signed By: Que FRANCES, [facility] Problem List/Past Medical History Ongoing Ascending aortic aneurysm BPH (benign prostatic hyperplasia) Chronic obstructive lung disease Colon polyp GERD (gastroesophageal reflux disease) HTN (hypertension) Monoclonal gammopathy of unknown significance Overactive bladder Spinal stenosis, lumbar Procedure/Surgical History Fusion of lumbar spine: 05/02/22 Tonsillectomy left neck incision for infected throat surgery Social History Alcohol Use: Current. Frequency: Daily. Electronic Cigarette/Vaping Electronic Cigarette Use: Never. Employment/School Status: Retired. Other: Manager Procurement. Home/Environment Living situation: Home/Independent. Lives with: Spouse. Substance Abuse Use: Never. Tobacco Use: 5-9 cigarettes (between 1/4 to 1/2 pack)/day in last 30 days. Interested in cessation: Yes. ?? with 5 children stopped smoking retired panama hat hydraulic press operator Family History Mother (): Alzheimer's disease; Aneurysm of aorta Father (): Cancer of prostate; Dilated cardiomyopathy Sister: Kidney transplant; Polycystic kidney disease Brother: Alzheimer's disease; Cancer of prostate Brother: Alive and well Daughter: Cancer of breast Daughter: Alive and well Daughter: Alive and well Son: Alive and well Son: Alive and well ? parents father had prostate cancer mother had Alzeheimers Patient Care team information Care Team Personnel Name: Krishna Velázquez MD Position: S Physician - Primary Care Member Role: PCP Address: [address] [place] [address], [address] [facility] [place] [id number] Telecom: Care Team Related Persons Name: RYLEE MABRY Insurance Providers Guarantor name: DEE DEE RAGHAVENDRA Health Plan Information #: 1 Payer: MEDICARE PART B OUTPT Member Number: [id number] Policy Number: NA Group Number: NA Health Plan Information #: 2 Payer: MEDEX Member Number: [id number] Policy Number: NA Group Number: NA
== END 2024-04-09 10:49 | disposition home or self-care (01) ==
PROVIDERS: PCP Internal Medicine; Visit Provider Physician Assistant
DX: T84.84XA Pain due to internal orthopedic prosthetic devices, implants and grafts, initial encounter (principal)
CPT/HCPCS: 99024

== ENCOUNTER → 2024-04-09 09:59 | Outpatient (BNVA) | payer MEDICARE, SELFPAY | PROVIDERS: PCP Internal Medicine; Visit Provider Physician Assistant | DX: T84.84XD Pain due to internal orthopedic prosthetic devices, implants and grafts, subsequent encounter (principal); X58.XXXD Exposure to other specified factors, subsequent encounter; Z98.890 Other specified postprocedural states | CPT/HCPCS: 99212 ==